=== PATIENT | female | born 1985 | race Caucasian/White ===

== ENCOUNTER → 2019-09-19 14:00 | Outpatient (BNVA) | payer MEDICAID, SELFPAY | PROVIDERS: PCP Family Medicine; Visit Provider Nurse Practitioner Family | DX: Z20.2 Contact with and (suspected) exposure to infections with a predominantly sexual mode of transmission (principal); Z86.19 Personal history of other infectious and parasitic diseases | CPT/HCPCS: 86705; 86706; 86709; 86803; 87340 ==

== ENCOUNTER → 2019-10-22 09:35 | Outpatient (BNVA) | payer MEDICAID, SELFPAY | PROVIDERS: PCP Family Medicine; Visit Provider Nurse Practitioner Family | DX: R10.2 Pelvic and perineal pain (principal); Z86.19 Personal history of other infectious and parasitic diseases | CPT/HCPCS: 81003; 81025; 87070; 87491; 87591 ==

== ENCOUNTER → 2020-01-23 10:25 | Outpatient (BNVA) | payer MEDICAID, SELFPAY | PROVIDERS: PCP Family Medicine; Visit Provider Nurse Practitioner Family | DX: R59.9 Enlarged lymph nodes, unspecified (principal); Z01.419 Encounter for gynecological examination (general) (routine) without abnormal findings; Z12.4 Encounter for screening for malignant neoplasm of cervix | CPT/HCPCS: 85025; 88175 ==

== ENCOUNTER → 2020-03-20 15:55 | Outpatient (BNVA) | payer MEDICAID, SELFPAY | PROVIDERS: PCP Family Medicine; Visit Provider Nurse Practitioner Family | DX: J06.9 Acute upper respiratory infection, unspecified (principal); Z11.59 Encounter for screening for other viral diseases | CPT/HCPCS: 87071; 87400; 87635; 87880 ==

== ENCOUNTER → 2020-10-23 13:14 | Outpatient (BNVA) | payer MEDICAID, SELFPAY | PROVIDERS: PCP Family Medicine; Visit Provider Nurse Practitioner Family | DX: R30.0 Dysuria (principal); N89.8 Other specified noninflammatory disorders of vagina; R10.2 Pelvic and perineal pain; Z68.20 Body mass index [BMI] 20.0-20.9, adult | CPT/HCPCS: 81000; 87070; 87077; 87205 ==

== ENCOUNTER → 2022-07-19 17:46 | Outpatient (BNVA) | payer MEDICAID, SELFPAY | PROVIDERS: PCP Family Medicine; Visit Provider Family Medicine | DX: R10.2 Pelvic and perineal pain (principal) | CPT/HCPCS: 81003; 81025; 87077; 87086; 87491; 87591; 87661 ==

== ENCOUNTER → 2023-10-18 14:29 | Outpatient (BNVA) | payer MEDICAID, SELFPAY | PROVIDERS: PCP Family Medicine; Visit Provider Nurse Practitioner Family | DX: N92.6 Irregular menstruation, unspecified (principal); R10.2 Pelvic and perineal pain; A60.04 Herpesviral vulvovaginitis | CPT/HCPCS: 80053; 81000; 81025; 84443; 85025 ==

== ENCOUNTER → 2023-11-09 15:02 | Outpatient (BNVA) | payer MEDICAID, SELFPAY | PROVIDERS: PCP Family Medicine; Visit Provider Nurse Practitioner Women's Health | DX: Z12.4 Encounter for screening for malignant neoplasm of cervix (principal) | CPT/HCPCS: 87624 ==

== ENCOUNTER → 2023-11-24 08:41 | Outpatient (BNVA) | payer MEDICAID, SELFPAY | PROVIDERS: PCP Family Medicine; Visit Provider Nurse Practitioner Women's Health | DX: N92.0 Excessive and frequent menstruation with regular cycle (principal) | CPT/HCPCS: 76830 ==

== ENCOUNTER → 2024-05-30 13:00 | Outpatient (BNVA) | payer MEDICAID, SELFPAY | PROVIDERS: PCP Family Medicine; Visit Provider Nurse Practitioner Family | DX: K52.29 Other allergic and dietetic gastroenteritis and colitis (principal); L50.0 Allergic urticaria | CPT/HCPCS: 82784; 83516; 86003; 86008 ==

== ENCOUNTER → 2025-05-03 11:09 | Outpatient (BNVA) | payer MEDICAID, SELFPAY | PROVIDERS: PCP Family Medicine; Visit Provider Nurse Practitioner Family | DX: R63.4 Abnormal weight loss (principal); R10.9 Unspecified abdominal pain; R53.83 Other fatigue | CPT/HCPCS: 81000; 81025 ==

== ENCOUNTER → 2025-07-17 15:00 | Outpatient (BNVA) | payer MEDICAID, SELFPAY | PROVIDERS: PCP Nurse Practitioner Family; Visit Provider Nurse Practitioner Family | DX: R10.9 Unspecified abdominal pain (principal); R03.0 Elevated blood-pressure reading, without diagnosis of hypertension; B82.9 Intestinal parasitism, unspecified; R14.0 Abdominal distension (gaseous); R19.7 Diarrhea, unspecified | CPT/HCPCS: 80053; 80061; 82306; 82607; 85025; 85651; 86038; 86140; 87046; 87177; 87209; 87506 ==

== ENCOUNTER → 2025-07-23 09:08 | Outpatient (BNVA) | payer MEDICAID, SELFPAY | PROVIDERS: PCP Nurse Practitioner Family; Visit Provider Nurse Practitioner Family | DX: R14.0 Abdominal distension (gaseous) (principal); R10.9 Unspecified abdominal pain; B82.9 Intestinal parasitism, unspecified; R19.7 Diarrhea, unspecified | CPT/HCPCS: 87046; 87177; 87209; 87506 ==

== ENCOUNTER 2025-09-04 08:42 | Emergency (ER) | payer MEDICAID, SELFPAY ==
--- NOTE | 2025-09-04 08:46 | XR_ITS ---
WS: [id number] Portable AP upright chest, Clinical Data: cp Comparison: None. Findings: No nodules, masses or effusions are seen. The heart is normal. The pulmonary vascularity is not increased. No pneumonia or pneumothorax is seen. Monitor leads are on the chest wall. XR/XR chest 1V portable [id number] Impression: Negative chest.
--- NOTE | 2025-09-04 08:46 | ECG_ITS ---
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 Measurements Intervals [place] Rate: 60 P: 66 AL: 150 QRS: 43 QRSD: 94 T: 58 QT: 421 QTc: 423 Interpretive Statements SINUS RHYTHM INCOMPLETE RIGHT BUNDLE BRANCH BLOCK [90+ ms QRS DURATION, TERMINAL R IN V1/V2, 40+ ms S IN I/aVL/V4/V5/V6] No previous ECG available for comparison Electronically Signed On 09-05-2025 15:46:27 LUBRICATION SERVICER by Sohail Moreno M.D. [id number]
[2025-09-04 08:52] VITALS: BP 131/77; PULSE 62; RESP 16; TEMP 36.9; O2SAT 100; BMI 18.1
--- NOTE | 2025-09-04 08:57 | W.ED.CHESTPA ---
HPI - Chest Pain General: Chief Complaint: Chest Pain Stated Complaint: chest pressure, confusion, blurred vision Time Seen by Provider: 09/04/25 08:46 Source: patient Mode of arrival: ambulatory Limitations: no limitations History of Present Illness: 39-year-old female who is here with multiple complaints. She states she has been having insomnia for months. States she typically only gets 2 to 3 hours of sleep at night seen her physician for but is had no improvement. She states that she has been having some palpitations and's been going on for weeks and had some worsening of the palpitations last night she denies any chest pain to me she states she is also had some slight confusion at times. She states she feels like she has bulging veins in her calf. She denies any vomiting denies any fever denies any headache Related Data Home Medications ?Medication ?Instructions ?Recorded ?Confirmed No Known Home Medications 07/25/25 09/04/25 Allergies Allergy/AdvReac Type Severity Reaction Status Date / Time No Known Allergies Allergy Verified 09/04/25 08:56 PFSH ED PFSH: Medical History Herpes genitalia Family History Denies family history of Colon cancer Ovarian cancer Diabetes Heart disease Hypercholesteremia Breast cancer Hypertension Uterine cancer Thyroid disease Stroke Social History Smoking and tobacco/nicotine status: never used tobacco/nicotine Female Reproductive History: Date of last menstrual period: 08/05/25 Physical Exam Const: COMMON NORMALS: no acute distress, patient oriented x3 and healthy appearing HENMT: COMMON NORMALS: normocephalic and atraumatic HEAD & SCALP: normocephalic and atraumatic Eye: COMMON NORMALS: Equal, round and reactive pupils present and EOMs intact bilaterally PUPIL: Yes Equal, round and reactive pupils present Neck/C-Spine: COMMON NORMALS: full ROM and supple Chest: COMMONS NORMALS: normal inspection of the chest and normal palpation of entire chest wall Resp: COMMON NORMALS: normal respiratory effort, No retractions, No use of accessory muscles and clear to auscultation bilaterally AUSCULTATION: clear to auscultation bilaterally Cardio: COMMON NORMALS: regular rate, regular rhythm and No murmurs present (Cardio) RATE: regular rate RHYTHM: regular rhythm GI: COMMON NORMALS: Normal to inspection, nondistended, normoactive bowel sounds present, Soft to palpation, non-tender and no masses PALPATION: Yes Soft to palpation Extremity: COMMON NORMALS: normal to inspection and full ROM Neuro: COMMON NORMALS: patient oriented x3, moves all extremities and no focal motor deficits Psych: COMMON NORMALS: mental status grossly normal, Normal thought process present and cooperative THOUGHT PROCESS: Normal thought process present Skin: COMMON NORMALS: no rashes or lesions noted and no wounds GENERAL SKIN EXAM: no rashes or lesions noted Course Vital Signs: Vital signs: Vital Signs Temperature 98.4 F 09/04/25 08:52 Pulse Rate 62 09/04/25 08:52 Respiratory Rate 16 09/04/25 08:52 Blood Pressure 131/77 09/04/25 08:52 Pulse Oximetry 100 09/04/25 08:52 Oxygen Delivery Me thod Room Air 09/04/25 08:52 MDM - Chest Pain Medical Decision Making Patient presents here with multiple complaints including chest pain differential includes pulmonary emboli, ACS, pneumonia. Patient has no signs of pulm emboli here vitals here been normal and she has no shortness of breath. Her initial repeat troponins are negative heart score 0 no signs of ACS. Chest x-ray interpreted by me that showed no acute abnormality patient is also had chronic insomnia and some confusion at times she is not confused here head CT was normal she is stable for discharge she is follow-up with PCP and return if worsening she understands agrees to plan. [place] at 0851 normal sinus rhythm heart rate [address] elevation QRS 94 QTc 422 Medical Records I reviewed the patient's medical records. Lab Data I reviewed the patient's lab results. 09/04/25 08:58 09/04/25 08:58 Radiology Impressions Chest X-Ray 09/04/25 08:46 Impression: Negative chest. Head CT 09/04/25 09:07 IMPRESSION: 1. No evidence of intracranial hemorrhage or mass effect. 2. No acute intracranial findings. Laboratory Results WBC 5.55 10^3/uL (3.29-11.43) 09/04/25 08:58 RBC 4.37 10^6/uL (3.85-5.65) 09/04/25 08:58 Hgb 13.90 g/dL (11.27-16.99) 09/04/25 08:58 Hct 41.4 % (36-47) 09/04/25 08:58 MCV 94.7 fl (85-98) 09/04/25 08:58 MCH 31.8 pg (27-33) 09/04/25 08:58 MCHC 33.6 g/dL (30-55) 09/04/25 08:58 RDW 13.0 % (12.1-15.1) 09/04/25 08:58 Plt Count 255 10^3/cmm (157-399) 09/04/25 08:58 MPV 8.6 fL (7.4-10.4) 09/04/25 08:58 Neut % (Auto) 65.5 % 09/04/25 08:58 Lymph % (Auto) 27.0 % 09/04/25 08:58 [place] % (Auto) 6.3 % 09/04/25 08:58 Eos % (Auto) 0.4 % 09/04/25 08:58 Baso % (Auto) 0.4 % 09/04/25 08:58 Neut # (Auto) 3.64 10^3/uL (1.8-7.7) 09/04/25 08:58 Lymph # (Auto) 1.5 10^3/uL (0.8-4.8) 09/04/25 08:58 [place] # (Auto) 0.4 10^3/uL (0.2-0.9) 09/04/25 08:58 Eos # (Auto) 0.0 10^3/uL (0.0-0.8) 09/04/25 08:58 Baso # (Auto) 0.0 10^3/uL (0.0-0.1) 09/04/25 08:58 Nucleated RBC % (auto) 0 % 09/04/25 08:58 Nucleated RBCs # 0.0 /100WBC 09/04/25 08:58 PT 12.60 SECONDS (12.1-14.9) 09/04/25 08:58 INR 0.88 (0.8-1.2) 09/04/25 08:58 Sodium 140 mmol/L (136-145) 09/04/25 08:58 Potassium 4.1 mmol/L (3.5-5.1) 09/04/25 08:58 Chloride 103 mmol/L (98-107) 09/04/25 08:58 Carbon Dioxide 21 mmol/L (22-29) L 09/04/25 08:58 Anion Gap 20.1 (5-19) H 09/04/25 08:58 BUN 14 mg/dL (6-20) 09/04/25 08:58 Creatinine 0.7 mg/dL (0.5-0.9) 09/04/25 08:58 GFR Calculation 94.2 mL/min (90-130) 09/04/25 08:58 Glucose 82 mg/dL (65-115) 09/04/25 08:58 Calculated Osmolality 290 mOsm/kg (285-295) 09/04/25 08:58 Calcium 9.5 mg/dL (8.5-10.5) 09/04/25 08:58 Total Bilirubin 0.4 mg/dL (0.15-1.2) 09/04/25 08:58 AST 18 U/L (0-32) 09/04/25 08:58 ALT 23 U/L (0-33) 09/04/25 08:58 Alkaline Phosphatase 36 U/L (35-105) 09/04/25 08:58 Troponin T Baseline < 6 ng/L (0-10) 09/04/25 08:58 Troponin T 60 Minute < 6.0 ng/L (0-10) 09/04/25 09:38 Delta Troponin T 0 ABS# (0-10) 09/04/25 09:38 Total Protein 6.8 g/dL (6.6-8.7) 09/04/25 08:58 Albumin 4.8 g/dL (3.5-5.2) 09/04/25 08:58 Globulin 2.0 g/dL (1.3-4.6) 09/04/25 08:58 Lipase 37 U/L (13-60) 09/04/25 08:58 All radiology interpretation(s) finalized by discharge Discharge Plan Discharge Patient Disposition: Home Clinical Impression: Atypical chest pain Condition: Stable Prescriptions: No Action No Known Home Medications Discharge Orders: Discharge ED (Routine); Ordered 09/04/25 Ordered By: Randall Denney Referrals: Nanci Marcus NP [Primary Care Provider, [facility]] - 4-7 days Discharge Diet: Advance as tolerated Discharge Activity: Resume usual activity Patient Instructions: Chest Pain (ED) Print Language: Maldivian Coding Level of Care Code ED Court Attendant for Chg Fwd Heart Score HEART Score Components History: Slightly Suspicous EKG: Normal Age: Less than 45 yrs Risk Factors: No Risk Factors Known Troponin: Baseline Trop <16 ng/L HEART Score RESULT HEART Score: 0
--- NOTE | 2025-09-04 09:07 | CT_ITS ---
WS: [id number] CT HEAD TECHNIQUE: Noncontrast CT of the head obtained from the skullbase to the vertex. CLINICAL INFORMATION: confusion COMPARISON: None. DLP: 1086.[address] scans at [facility] use at least one of these dose optimization techniques: automated exposure control; mA and/or kV adjustment per patient size (includes targeted exams where dose is matched to clinical indication); or iterative reconstruction. FINDINGS: No evidence of intracranial hemorrhage or mass effect. Ventricular system and basal cisterns are patent. No extra-axial fluid collections. No evidence of mass or mass effect. Normal bauer-white differentiation. Incidental slightly low lying cerebellar tonsils. Paranasal sinuses and mastoid air cells are well aerated. .Normal visualized soft tissues. CT/CT head wo con* [id number] IMPRESSION: 1. No evidence of intracranial hemorrhage or mass effect. 2. No acute intracranial findings.
[2025-09-04 09:08] LABS: Hematocrit 41.4 % (36-47); Hemoglobin 13.90 g/dL (11.27-16.99); Mean Corpuscular HGB Conc 33.6 g/dL (30-55); Mean Corpuscular Hemoglobin 31.8 pg (27-33); Mean Corpuscular Volume 94.7 fl (85-98); Nucleated Red Blood Cells % 0 %; Platelet Count 255 10^3/cmm (157-399); Red Blood Count 4.37 10^6/uL (3.85-5.65); White Blood Count 5.55 10^3/uL (3.29-11.43)
[2025-09-04 09:25] LABS: INR 0.88 (0.8-1.2); Prothrombin Time 12.60 SECONDS (12.1-14.9)
[2025-09-04 09:30] LABS: Alanine Aminotransferase 23 U/L (0-33); Albumin Level 4.8 g/dL (3.5-5.2); Alkaline Phosphatase 36 U/L (35-105); Aspartate Amino Transferase 18 U/L (0-32); Blood Urea Nitrogen 14 mg/dL (6-20); Calcium 9.5 mg/dL (8.5-10.5); Carbon Dioxide 21 mmol/L (22-29); Chloride 103 mmol/L (98-107); Globulin 2.0 g/dL (1.3-4.6); Glucose 82 mg/dL (65-115); Lipase 37 U/L (13-60); Osmolality Calculated 290 mOsm/kg (285-295); Sodium 140 mmol/L (136-145); Total Protein 6.8 g/dL (6.6-8.7)
[2025-09-04 09:31] LABS: Troponin(5th) Baseline < 6 ng/L (0-10)
[2025-09-04 09:45] LABS: Anion Gap 20.1 (5-19); Potassium 4.1 mmol/L (3.5-5.1)
[2025-09-04 10:27] VITALS: BP 124/75; PULSE 55; RESP 16; O2SAT 98
== END 2025-09-04 10:28 | disposition home or self-care (01) ==
PROVIDERS: Emergency Provider Emergency Medicine; PCP Nurse Practitioner Family
DX: R07.89 Other chest pain (principal)
CPT/HCPCS: 36415; 70450; 71045; 80053; 83690; 84484; 85025; 85610; 93005; 99285